=== PATIENT | female | born 1990 | race Asian ===

== ENCOUNTER 2019-10-20 17:24 | Inpatient (IN) | payer SELFPAY ==
--- NOTE | 2019-10-20 17:28 | P.HPOB_ITS ---
OB HPI Date/Time Date of admission: 10/20/19 Date Patient Seen: 10/20/19 Time Patient Seen: 05:45 History of Present Condition Chief complaint: observation of labor : 1 Para: 0 Estimated Date of Delivery: 11/14/19 Estimated Gestational Age (weeks): 36w3d Narrative: Shonna Sumner is a 28 year old at 36w3d by LMP consistent with 1st trimester ultrasound who presents with PPROM, transferred from [place] . The pt reports that around 2:30pm this afternoon she woke from a nap with her sheets very wet. She has continued to leak fluid since then. No vaginal bleeding, no contractions. She has been feeling her baby move regularly. The pt moved from [facility] to be near to her fiance, Bull, within the past week. She received all her care in [facility]. She brought her log with her today, with limited information within. She had a 1st trimester ultrasound on 04/13/19 consistent with an BARRY of 9w1d. Her LMP was 02/08/20. She appears to have had a normal 2nd trimester anatomy scan. She has been normotensive throughout her . She does not appear to have completed a glucola. had AFIs completed started at 33w1d for unclear reasons that were 9.5, 8.6, 8.6, and 8.4 on consecutive weeks. Her last EFW was 2750g on 10/13. The pt has taken a vitamin throughout her . Written labs include A+ blood type, HIV negative, VPRL negative, Toxoplasma negative, Hgb 13, HepBsAg negative, HepBsAb positive. History of Present care: limited care, initiated at week # (9), number of visits (7) and pounds weight gain (13kg) Dating criteria: LMP confirmed by 1st trimester US Ultrasounds: normal 1st trimester US and normal mid trimester US Obstetrical complications: none Medical complications: none Evaluation Evaluation Baseline heart rate: 150 Variability: Moderate (11-25) monitor accelerations: Present monitor decelerations: Absent Contraction Frequency (minutes): 2 Uterine Contraction Intensity: Mild Category of Tracing: Reactive Cervical dilation (cm): 0 Cervical effacement (%): 75 station: -3 Comments: Cervical exam from outside facility At outside facility grossly ruptured with nitrazine positive [facility] Social History Smoking Status: Never smoker Meds Home Medications and Allergies Allergies Allergy/AdvReac Type Severity Reaction Status Date / Time acetaminophen Allergy Severe Anaphylaxis Verified 10/20/19 17:41 Exam Narrative Exam Narrative: Gen: NAD, sitting comfortably in bed, appears well CV: RRR, no murmurs Resp: clear to auscultation bilaterally Abd: soft, nontender, nondistended, gravid Ext: no edema Presentation: vertex Estimated Weight (lbs): 5 Amniotic Fluid: clear Objective Labs Result Diagrams: 10/20/19 18:15 Assessment and Plan Assessment and Plan Assessment and Plan narrative: 28yo at 36w3d who presented with PPROM from outside facility. No significant complications with . Low-normal MICHAEL in the third trimester. GBS unknown, Rh unknown but based on available documentation appears positive. - GBS prophylaxis initiate at outside hospital, continue due to and unkn own status - Betamethasone given for late- status. Will repeat in 24hrs if still . - labs ordered - FHT reassuring, continuous monitoring - Epidural for pain control if desired - Will start pitocin if no regular painful contractions after 8hrs of rupture - Expectant management, anticipate
[2019-10-20] MEDS: BETAMETHASONE 30 MG/5 ML MDV 12 MG IM (18:26)
[2019-10-20 18:34] LABS: Add Manual Diff / Slide Review NO; Basophils Absolute Auto 0 /uL (0-100); Basophils Percent Auto 0.5 % (0-2); Eosinophils Absolute Auto 100 /uL (0-450); Eosinophils Percent Auto 1.9 % (2-4); Hematocrit 34.3 % (36-46); Hemoglobin 11.4 g/dL (12.0-16.0); Lymphocytes Absolute Auto 1000 /uL (1100-4500); Lymphocytes Percent Auto 14.7 % (25-40); Mean Corpuscular HGB Conc 33.1 % (30-36); Mean Corpuscular Hemoglobin 26.7 PG (26-34); Mean Corpuscular Volume 80.8 fL (80-100); Monocytes Absolute Auto 300 /uL (0-900); Monocytes Percent Auto 5.3 % (3-14); Neutrophils Absolute Auto 5100 /uL (1500-7000); Neutrophils Percent Auto 77.6 % (50-75); Platelet Count 211 X10^3/uL (150-400); Red Blood Cell Count 4.25 X10^6/uL (4.0-5.2); White Blood Cell Count 6.5 X10^3/uL (4.5-11.0)
[2019-10-20] MEDS: LACTATED RINGERS 1,000 ML 100 ML IV (18:35)
[2019-10-20 19:31] VITALS: BP 112/75
[2019-10-20 19:42] LABS: Hepatitis B Surface Antigen NEGATIVE s/c (NEGATIVE); Rubella Antibody IgG 56.2 IU/mL (>15)
[2019-10-20 19:48] LABS: HIV 1 & 2 Ab/Ag 4th Gen Combo NEGATIVE (NEGATIVE)
[2019-10-20] MEDS: PENICILLIN G POTASSIUM 3,000,000 UNIT/50 ML FROZ.PIGGY 100 UNIT IV (20:14)
[2019-10-20 20:25] LABS: Hep C Virus Ab w/Reflex Quant NEGATIVE s/c (NEGATIVE)
[2019-10-20] MEDS: OXYTOCIN PREMIX 30 UNIT/500 ML PLAST..BAG IV (23:10)
[2019-10-21] MEDS: PENICILLIN G POTASSIUM 3,000,000 UNIT/50 ML FROZ.PIGGY 100 UNIT IV ×4 (00:02→12:35)
[2019-10-21] MEDS: fentaNYL 100 MCG/2 ML INJ 50 MCG IV ×2 (03:28→04:17)
[2019-10-21] MEDS: LACTATED RINGERS 1,000 ML 100 ML IV ×2 (03:30→08:16)
--- NOTE | 2019-10-21 06:49 | P.PNOB_ITS ---
Date/Time Date Patient Seen: 10/21/19 Time Patient Seen: 07:00 Pain Control Pain control: epidural Pelvic Exam Dilation (cm): 9 Effacement (%): 90 station: +1 Amniotic membrane status: Ruptured Contractions Monitor mode: External Pitocin rate (mU/min): 0 Contraction frequency (min): 2 Contraction pattern: Regular Contraction intensity: Mild Status status: Category ll Heart Rate Baseline: 130 Monitor Accelerations: Present Monitor Decelerations: Variable Monitor Variability: Moderate Assessment and Plan Comments: 28yo at 36w3d who presented with PPROM from outside facility. No significant complications with . care in [facility]. Low- normal MICHAEL in the third trimester. GBS unknown, Rh positive. - Continue Penicillin for GBS prophylaxis, adequate dosing already - Betamethasone given for late- status. Will repeat in 24hrs if still . - FHT reassuring overall. Mild intermittent variable decels. - Epidural in place for pain control - Pitocin utilized for induction, no turned off due to decels. Pt continues to contract regularly. - Expectant management, anticipate
--- NOTE | 2019-10-21 13:53 | PM.OBPRVD ---
Events: Premature Rupture of Membrane Labor & Delivery Delivery date: 10/21/19 Delivery monitor: external FHT Route of delivery: forceps (outlet) Complications: None Narrative: PROCEDURE: at 36w3d presented with PPROM and was admitted to Labor and Delivery. The patient progressed through the 1st stage over 14 hours. The pt received adequate prophylaxis with Penicillin for GBS unknown status with presentation. Labor was induced with pitocin, requiring only low doses. Pain was controlled with an epidural. The patient progressed to complete. She pushed for 2 hours with progress to +2 station. She then stalled with her pushing. After a 1 hour rest, the pt pushed for another 2 hours, again with minimal progress. Dr Duff was consulted. Due to maternal exhaustion with asynclitic presentation and an adequate pelvis, the decision was made to proceed with outlet forceps-assited vaginal delivery. Patient was evaluated and noted to have adequate pain control. Patient counseled on risks/benefits/alternatives of forceps assisted delivery. Risks were discussed and they included but were not limited to a need for an episiotomy, pressure zimmerman on the baby, lacerations to the baby's scalp/face, serious damage including skull fracture, the need to proceed with an abdominal procedure, , paralysis of the baby's arms and/or legs, neurological impairment of the baby. Alternatives would include CS or further observation depending on status. Questions were answered and the patient verbalized an understanding and decided to proceed. Cervix completely dilated and maternal bladder emptied. Laufe forceps were applied by Dr Duff without difficulty to the head and articulated easily. Using downward traction during two sets of contractions, the infant was delivered to over intact perineum without difficulty. The pt was then delivered completely with one additional maternal push, to maternal abdomen without difficulty, with spontaneous cry immediately after delivery. The cord was clamped and cut after it stopped pulsating. There were no zimmerman on the 's head from the forceps. Facial exam was symmetric and no bruising noted. The perineum and vagina were inspected with 2nd degree perineal laceration with bilateral sulcal extensions repaired with 3-O Chromic, and right vaginal wall laceration repaired with 2-O Chromic. PREPROCEDURE DIAGNOSIS: Intrauterine at 36w3d PPROM GBS unknown RH positive POSTPROCEDURE DIAGNOSIS: Intrauterine at 36w4d, delivered Same as preprocedure Asynclitic presentation PROCEDURE: Forceps-assisted vaginal delivery INDUCTION: with Pitocin ROM APPEARANCE: Clear BABY A DELIVERY TIME: 12:59 BABY A OUTCOME: Viable BABY A SEX: Female BABY A WEIGHT: [id number] BABY A PRESENTATION: Vertex BABY A POSITION: Asynclitic with left parietal presenting part BABY A NUCHAL CORD: None BABY A # CORD VESSELS: 3 BABY A CORD GASES OBTAINED: No PLACENTA DELIVERY TIME: 13:04 PLACENTAL DELIVERY TYPE: Spontaneous PLACENTA APPEARANCE: Intact EBL: 300mL [place] Baby 1: gender: Female score (1 min): 9 score (5 min): 9 Plan for aftercare: Normal care
[2019-10-21] MEDS: IBUPROFEN 600 MG TABLET PO (16:19)
[2019-10-21] MEDS: diphenhydrAMINE 25 MG TABLET 50 MG PO (19:30)
--- NOTE | 2019-10-22 09:35 | PM.OBDS.1 ---
Discharge Providers Provider Date of admission: 10/20/19 17:24 Discharge Date: 10/22/19 Primary care physician: Dr. Dhaval Walsh Consults: 10/22/19 13:51 Consult to Supervisor Soldering Routine Comment: Discharge provider: Sarina Dumont MD Summary Hospital Course Date Patient Seen: 10/22/19 Time Patient Seen: 09:00 Procedures: Forceps-assisted vaginal delivery Hospital Course: The pt presented from outside hospital with PPROM. She received a single dose of betamethasone due to being 36 weeks 3 days, late . Pitocin was used for induction of labor. She received adequate prophylaxis with penicillin for GBS unknown status. Her pain was controlled with an epidural. She progressed to complete, and after pushing for patient q.4 hours along the decision was made to proceed with outlet forceps assisted vaginal delivery due to asynclitic presentation. The patient delivered a viable baby girl at 12:59 p.m. on 10/21/2019 without complications. A second-degree perineal and right vaginal wall laceration were repaired. The patient tolerated delivery well. There was no noted injury to the baby due to the forceps. , there were no complications. At the time of discharge the patient was voiding, ambulating, passing flatus lot difficulty. Her pain was adequately controlled. Which she was breast-feeding with good latch. She will follow-up in clinic in 6 weeks for her check. Peripartum Data Delivery Method: Assisted Delivery (Outlet forceps) Laceration Description: Perineal - 2nd Degree and Vaginal - 1st Degree (right vaginal wall) Episiotomy description: None Procedures: Forceps-assisted vaginal delivery complications: none [place] 1: Gender: Female Disposition of : home Time Spent with Patient Time attestation: Total time spent providing and/or coordinating discharge services: Objective Labs Result Diagrams: 10/20/19 18:15 Exam Narrative Exam Narrative: General: No acute distress, sitting comfortably on bed, appears well CV: Regular rate and rhythm, no murmurs Respiratory: Clear to auscultation bilaterally Abdomen: Soft, slightly distended but not tympanic, normoactive bowel sounds, fundus firm and well below umbilicus Extremities: Trace edema Discharge Plan Discharge Plan Patient Disposition: Home Discharge orders & Medications Prescriptions: New docusate sodium [DOK] 100 mg Capsule 100 mg PO DAILY Qty: 30 RF: 0 Zqi-E-Sohqai Cream 1 applic topical PRN PRN (Reason: Tenderness) Qty: 30 RF: 0 Prenatabs Rx 29 mg iron- 1 mg Tablet 1 tab PO DAILY Qty: 90 RF: 0 Follow up/Referrals: Dr. Dhaval Walsh [Other] Sarina Dumont MD [Physician] - 6 Weeks Skin/Wound/Dressing Care Report to your healthcare provider any signs of infection, such as:: chills, fever, increased pain and unusual drainage Visit Report/Discharge Packet Instructions: DI for Labor and Delivery, Vaginal Visit Report Forms: Patient Portal/API, Stroke Signs & Symptoms Discharge Data Attending Provider: Sarina Dumont Admit Date/Time: 10/20/19 17:24
[2019-10-22] MEDS: PRENATAL VIT,CALC/IRON/FOLIC 1 TABLET 1 TAB PO (09:59)
[2019-10-22] MEDS: LANOLIN OINT 7 GM 1 APPLIC TOP (09:59)
[2019-10-22] MEDS: DOCUSATE 100 MG CAPSULE PO (09:59)
[2019-10-22 14:52] VITALS: BP 112/75; PULSE 88; RESP 18; TEMP 37.1
[2019-10-24 08:11] LABS: RPR Screen Non Reactive (Non Reactive)
[2019-10-24 18:36] LABS: Varicella IgG Antibody 555 index (Immune >165)
--- NOTE | 2019-11-22 14:00 | PM.CN ---
History of Present Illness Consult details Date Patient Seen: 10/21/19 Time Patient Seen: 17:30 Chief complaint: maternity Reason for consult: Prolonged 2nd stage of labor Narrative: Patient is a 29-year-old 1 para 0 at 36-,4/7 weeks gestation who presented with premature rupture of membranes. Her 1st stage of labor was 14 hours. She received IV antibiotic prophylaxis for group B strep as her status was unknown, and she was . Labor was augmented with Pitocin. She received an epidural for pain management. She progressed to complete dilation. She pushed for 2 hours with progress to the +2 station. She then rested for an hour and pushed for another 2 hours with minimal progress. Ob was consulted regarding an operative delivery. Meds Home Medications and Allergies Home Medications Medication Instructions Recorded Confirmed Type docusate sodium [DOK] 100 mg PO DAILY #30 cap 10/22/19 Rx lanolin [Zyb-A-[id number]] 1 applic TOPICAL PRN PRN #30 g 10/22/19 Rx vit,[id number] 1 tab PO DAILY #90 tab 10/22/19 Rx [Prenatabs Rx] Allergies Allergy/AdvReac Type Severity Reaction Status Date / Time acetaminophen Allergy Intermediate Swelling Verified 10/21/19 19:40 of the Eye ibuprofen Allergy Intermediate Swelling Verified 10/21/19 19:40 of the Eye Exam Vital Signs (past 8 hours): Generally: Patient comfortable with contractions with epidural in place Vagina: Complete dilation. Vertex in the SILVERIO presentation at +2 station. Procedure: Bladder was emptied of 100 cc of clear yellow urine. The Laufe forceps were applied without difficulty. With 2 pulls, the vertex delivered to the perineum. The Laufe forceps were removed. With 1 additional push the remainder of the body delivered and was placed onto mom's abdomen. There was a second-degree laceration and bilateral sulcus tears. These were repaired by Dr. Dumont with OB assist. Objective Labs Result Diagrams: 10/20/19 18:15 Assessment & Plan Assessment & Plan narrative: Assessment: 29 year old with PPROM at 36 +3 weeks gestation with prolonged 2nd stage of labor Plan: Outlet forceps assisted delivery as above Repair by Dr. Dumont
== END 2019-10-22 14:00 | disposition home or self-care (01) | DRG 807 ==
PROVIDERS: Admitting Provider Family Medicine; PCP Family Medicine; Referring Provider Family Medicine; Visit Provider Family Medicine
DX: O42.013 Preterm premature rupture of membranes, onset of labor within 24 hours of rupture, third trimester (principal); Z37.0 Single live birth; O26.813 Pregnancy related exhaustion and fatigue, third trimester; O70.1 Second degree perineal laceration during delivery; Z3A.36 36 weeks gestation of pregnancy; O70.0 First degree perineal laceration during delivery
CPT/HCPCS: 01967; 36415; 59050; 59409; 80055; 86787; 86803; 86850; 86900; 86901; 87389; 99222; 99238; 99253; G0378; G0379; J0702; J2540; J2590; J3010